=== PATIENT | female | born 1935 ===

== ENCOUNTER 2018-12-31 14:26 | Emergency (ER) | payer MEDICAID, MEDICARE ==
[2018-12-31 15:18] VITALS: BMI 20.6
[2018-12-31] MEDS ORDERED: Sodium Chloride 0.9% 1,000 ML IV STA (15:20)
[2018-12-31 15:22] VITALS: RESP 18; TEMP 98
--- NOTE | 2018-12-31 15:28 | ED PDOC ---
Arrival/HPI - General Time Seen by Provider: 12/31/18 14:54 Historian: Patient - History of Present Illness Narrative History of Present Illness (Text): 12/31/18 15:21 83 year old female, with a past medical history of hypertension, hyperthyroidism, and hypercalcemia, who presents to the emergency department complaining of dizziness x 1 week. Patient reports episodes of dizziness end rapidly. Family endorses one episode of vomiting 5 days ago, and two episodes of diarrhea. Patient denies any fever, nausea, shortness of breath, abdominal pain, chest pain, or any other somatic complaints. 12/31/18 17:07 Time/Duration: 1 week Symptom Onset: Gradual Symptom Course: Unchanged Activities at Onset: Light Context: Home Past Medical History - Provider Review Nursing Documentation Reviewed: Yes - Cardiac Hx Pacemaker: No - Neurological Hx Paralysis: No - Hematological/Oncological Hx Blood Transfusions: No Hx Blood Transfusion Reaction: No - Musculoskeletal/Rheumatological Hx Musculoskeletal Disorders: No - Psychiatric Hx Emotional Abuse: No Hx Physical Abuse: No Hx Substance Use: No - Anesthesia Hx Anesthesia Reactions: No Hx Malignant Hyperthermia: No - Suicidal Assessment Feels Threatened In Home Enviroment: No Family/Social History - Physician Review Nursing Documentation Reviewed: Yes Family/Social History: Unknown Family HX Hx Alcohol Use: No Hx Substance Use: No Allergies/Home Meds Allergies/Adverse Reactions: Allergies Penicillins Allergy (Verified 12/31/18 15:17) RASH Home Medications: Home Meds Medication Instructions Recorded Confirmed Amlodipine Besylate [Norvasc] 10 mg PO DAILY 03/18/12 12/31/18 Aspirin [Aspir 81] 81 mg PO DAILY 03/18/12 12/31/18 Dexlansoprazole [Dexilant] 60 mg PO DAILY 03/18/12 12/31/18 busPIRone [Buspar] 15 mg PO PRN PRN 04/24/15 12/31/18 Review of Systems - Physician Review All systems were reviewed & negative as marked: Yes - Review of Systems Constitutional: absent: Fevers Respiratory: absent: SOB Cardiovascular: absent: Chest Pain Gastrointestinal: Diarrhea, Vomiting. absent: Nausea Neurological: Dizziness Physical Exam Appearance: Positive for: Well-Appearing, Non-Toxic, Comfortable Pain Distress: None Mental Status: Positive for: Alert and Oriented X 3 - Systems Exam Head: Present: Atraumatic, Normocephalic Pupils: Present: PERRL Extroacular Muscles: Present: EOMI Conjunctiva: Present: Normal Mouth: Present: Moist Mucous Membranes Neck: Present: Normal Range of Motion. No: JVD Respiratory/Chest: Present: Clear to Auscultation, Good Air Exchange. No: Respiratory Distress, Accessory Muscle Use Cardiovascular: Present: Regular Rate and Rhythm, Normal S1, S2. No: Murmurs Abdomen: No: Tenderness, Distention, Peritoneal Signs Back: Present: Normal Inspection Upper Extremity: Present: Normal Inspection. No: Cyanosis, Edema Lower Extremity: Present: Normal Inspection. No: Edema Neurological: Present: GCS=15, CN II-XII Intact, Speech Normal Skin: Present: Warm, Dry, Normal Color. No: Rashes Psychiatric: Present: Alert, Oriented x 3, Normal Insight, Normal Concentration Medical Decision Making ED Course and Treatment: 12/31/18 15:19 Impression: 83 year old female presents to the emergency department complaining of dizziness x 1 week. Differential Diagnosis included but are not limited to: r/o dehydration v DE Plan: -- Labs -- Iv fluids -- Urinalysis -- Urine culture -- Reassess and disposition Prior Visits: Notes and results from previous visits were reviewed. Progress Notes: - EKG Interpretation EKG Interpretation (Text): 12/31/18 15:32 EKG reviewed, shows: Normal sinus rhythm at 72 bpm, left axis deviation, occasional PACs Interpreted by ED Physician: Yes - Scribe Statement The provider has reviewed the documentation as recorded by the Scribe Darci Jennings All medical record entries made by the Scribe were at my direction and personally dictated by me. I have reviewed the chart and agree that the record accurately reflects my personal performance of the history, physical exam, medical decision making, and the department course for this patient. I have also personally directed, reviewed, and agree with the discharge instructions and disposition. Disposition/Present on Arrival - Present on Arrival Any Indicators Present on Arrival: No History of DVT/PE: No History of Uncontrolled Diabetes: No Urinary Catheter: No History of Decub. Ulcer: No - Disposition Have Diagnosis and Disposition been Completed?: Yes Diagnosis: Dizziness, Gastroenteritis Disposition: HOME/ ROUTINE Disposition Time: 17:14 Patient Plan: Discharge Condition: IMPROVED Discharge Instructions (ExitCare): Gastroenteritis (ED), Dizziness, Nonvertigo, (DC) Referrals: [facility] [place] [Outside] - Follow up with primary [facility] at [facility] [Outside] - Follow up with primary [facility] at [place] [Outside] - Follow up with primary
[2018-12-31 15:50] LABS: BASO # 0.02 K/mm3 (0.0-2.0); BASO % 0.3 % (0.0-3.0); EOS # 0.1 (0.0-0.7); EOS % 0.7 % (1.5-5.0); HEMOGLOBIN 13.8 g/dL (12.0-16.0); LYMPH # 1.6 (1.2-3.4); LYMPH % 21.8 % (22.0-35.0); MEAN CELL VOLUME 91.3 fl (80.0-105.0); MEAN CORPUSCULAR HEMOGLOBIN 30.9 pg (25.0-35.0); MEAN CORPUSCULAR HGB CONC 33.8 g/dl (31.0-37.0); MEAN PLATELET VOLUME 10.1 fl (7.0-11.0); MONO # 0.7 (0.1-0.6); MONO % 9.4 % (1.0-6.0); RBC 4.47 10^6/uL (3.5-6.1); WHITE BLOOD COUNT 7.2 10^3/uL (4.5-11.0)
[2018-12-31 15:55] LABS: INR 1.2; PARTIAL THROMBOPLASTIN TIME 27.9 Seconds (26.9-38.3); PROTHROMBIN TIME 13.3 SECONDS (9.4-12.5)
[2018-12-31 16:10] LABS: TROPONIN I < 0.01 ng/mL
[2018-12-31 16:14] LABS: ALB/GLOB RATIO 1.3 (1.1-1.8); ALBUMIN 4.6 g/dL (3.0-4.8); ALT/SGPT 11 U/L (7-56); AST/SGOT 17 U/L (14-36); BLOOD UREA NITROGEN 13 mg/dL (7-21); CALCIUM 12.4 mg/dL (8.4-10.5); GFR NON-AFRICAN AMERICAN > 60; LIPASE 58 U/L (23-300)
[2018-12-31 16:55] LABS: PH,URINE 7.5 (4.7-8.0); URINE BILIRUBIN NEGATIVE (NEGATIVE); URINE BLOOD TRACE-INTACT (NEGATIVE); URINE GLUCOSE (UA) NEGATIVE (NEGATIVE); URINE LEUKOCYTE ESTERASE SMALL Leu/uL (NEGATIVE); URINE PROTEIN NEGATIVE mg/dL (<30 mg/dL); URINE UROBILINOGEN 0.2 E.U./dL (<1 E.U./dL)
[2018-12-31 16:56] LABS: URINE APPEARANCE CLEAR (CLEAR); URINE COLOR LIGHT YELLOW (YELLOW)
[2018-12-31] MEDS ORDERED: Potassium Chloride 20 mEq ER Tab PO STA (17:02)
[2018-12-31 17:04] LABS: URINE EPITHELIAL CELLS 0 - 2 /hpf (0-5); URINE RBC 0 - 2 /hpf (0-2)
[2018-12-31 17:42] VITALS: BP 135/70; PULSE 78; O2SAT 98
--- NOTE | 2019-01-01 11:54 | CARD ---
APPROVED REPORT Date of service: 12/31/2018 EKG Measurement Heart [id number] <Conclusion> Normal sinus rhythm Normal ECG
== END 2018-12-31 17:42 | disposition home or self-care (01) ==
LOC: ED 14:26
DX: R42 Dizziness and giddiness (principal); K52.9 Noninfective gastroenteritis and colitis, unspecified; I10 Essential (primary) hypertension; E83.52 Hypercalcemia
CPT/HCPCS: 80053; 81001; 83690; 83735; 84484; 85025; 85610; 85730; 87086; 93005; 96360; 99283; J7030